=== PATIENT | female | born 1960 | race African-American/Black ===

== ENCOUNTER 2019-10-30 08:30 | Emergency (ER) | payer OTHER ==
--- NOTE | 2019-10-30 08:44 | PDOC ---
Rapid Medical Evaluation Time Seen by Provider: 10/30/19 08:39 Medical Evaluation: 10/30/19 08:39 I have performed a brief in-person evaluation of this patient. The patient presents with a chief complaint of: Here w/ 25 pound unintentional weight loss w/ chest discomfort and cough x > 1 month. Smoker for 25 years. Pertinent physical exam findings:Thin appearing female, tachy to 115 I have ordered the following:labs/cxr The patient will proceed to the ED for further evaluation. Discharge Disposition - Diagnosis Weight loss - Referrals - Patient Instructions - Post Discharge Activity
[2019-10-30 08:45] VITALS: BMI 12.9
--- NOTE | 2019-10-30 09:40 | PDOC ---
History of Present Illness - General Chief Complaint: Loss of Appetite Stated Complaint: Loss of Appetite, weakness Time Seen by Provider: 10/30/19 08:39 - History of Present Illness Initial Comments: Christianne Parra is a 59 Y F with no significant PMH, presets with complaints of weight loss, decreased energy, cough and right sided chest soreness. She reports a loss of about 23lbs in 2-3months. 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 She reports that she has been in self quarantine since july, because her borther is on chemo. She did not have covid/covid like symptoms. Her appetite has always been low, but no recent changes. No fever, chills, night sweats, SOB, chest pain/pleuritic chest pain. she reports >30 years of smoking, 1/3 pack per day. No alcohol, illicit drugs. 10/30/19 09:33 10/30/19 10:15 Past History - Medical History Allergies/Adverse Reactions: Allergies Allergy/AdvReac Type Severity Reaction Status Date / Time No Known Allergies Allergy Verified 10/30/19 08:39 Cancer: No COPD: No Thyroid Disease: No Other medical history: DENIES - Immunization History Immunization Up to Date: No - Psycho-Social/Smoking History Smoking History: Current every day smoker Information on smoking cessation initiated: No - Substance Abuse Hx (Audit-C & DAST Scrn) How often the patient has a drink containing alcohol: Never Score: In Men: 4 or > Positive; In Women: 3 or > Positive: 0 Screen Result (Pos requires Nsg. Audit-10AR): Negative In the last yr the pt used illegal drug/Rx for NonMed reason: No Score: Yes response is considered Positive: 0 Screen Result (Positive result requires Nsg. DAST-10): Negative Review of Systems - Review of Systems Able to Perform ROS?: Yes Is the patient limited French proficient: No Constitutional: Yes: Weakness, Unintentional Wgt. Loss. No: Chills, Diaphoresis, Fever, Loss of Appetite, Night Sweats HEENTM: No: Blurred Vision, Nose Congestion, Throat Pain, Difficulty Swallowing Respiratory: Yes: Cough (with clear sputum), Productive cough. No: Shortness of Breath, Hemoptysis Cardiac (ROS): Yes: Chest Pain (right sided soreness). No: Edema, Lightheadedness, Palpitations, Syncope ABD/GI: No: Constipated, Diarrhea, Difficulty Swallowing, Nausea, Poor Appetite, Poor Fluid Intake, Vomiting : No: Burning, Dysuria, Frequency, Hematuria Musculoskeletal: No: Back Pain, Neck Pain Integumentary: No: Change in Color, Dryness, Rash Neurological: Yes: Weakness. No: Headache, Numbness, Tingling, Tremors Endocrine: Yes: Unexplained Weight Loss. No: Intolerance to Cold, Intolerance to Heat, Increased Hunger, Increased Thirst *Physical Exam - Vital Signs Last Vital Signs Temp Pulse Resp BP Pulse Ox 98.3 F 115 H 20 131/83 100 10/30/19 08:40 10/30/19 08:40 10/30/19 08:40 10/30/19 08:40 10/30/19 08:40 - Physical Exam General Appearance: Yes: Cachetic. No: Apparent Distress HEENT: positive: EOMI, ANTWAN. negative: Nasal Congestion, Rhinorrhea, Thrush Neck: positive: Normal Thyroid, Supple. negative: Tender, Carotid bruit, Thyromegaly Respiratory/Chest: positive: Lungs Clear, Decreased Breath Sounds. negative: Chest Tender, Normal Breath Sounds, Respiratory Distress, Crackles, Rales, Rhonchi Cardiovascular: positive: Regular Rhythm, S1, S2, Tachycardia. negative: JVD, Murmur Vascular Pulses: Carotid (R): 2+, Carotid (L): 2+, Dorsalis-Pedis (R): 2+, Doralis-Pedis (L): 2+ Gastrointestinal/Abdominal: positive: Normal Bowel Sounds, Soft. negative: Tender, Tenderness Musculoskeletal: negative: Vertebral Tenderness Extremity: positive: Normal Inspection. 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 #r/o Lung Ca vs malnutrition, vs hyperthyroidism - weight loss of 23lbs over 2-3 months, BMI 12.9 - Smoking for >30 years - CXR: Hyper inflation w/ fullness of R. hilum - CT chest - CBC, CMP, Mg, Phos, Ua, TSH, cardiac markers - EKG 10/30/19 10:20 Discharge - Discharge Information Problems reviewed: Yes Clinical Impression/Diagnosis: Weight loss Condition: Stable Disposition: HOME - Admission No - Follow up/Referral Referrals: Kiana Joseph [Primary Care Provider] - - Patient Discharge Instructions Additional Instructions: You were seen today (10/30/19) in [facility] ER today for unintentional weight loss of 23lbs, over 2-3months. CXR showed hyperinflation and fullness of R. hilum. CT scan was done to evaluate further. CT revealed a Large central right upper lobe mass(4.9 x 4.3 x 5.2) that appears to be invading the mediastinum. You were informed of the CT scan finding of Mass, suspicious for malignancy. Your CT findings will need further evaluation inpatient. You stated that you did not want to spend tonight in the hospital, wants to sleep in your own bed and will return to ED in the morning. You were advised to return to ER for admission, further work up for the lung mass. - If you decided that you do not want to return to the ER, please f/u with your Primary care physician(Dr. joseph). It is important that you get a proper workup for the lung mass, suspicious for malignancy. - If you do not get a full evaluation, you are at risk for progression of the lung mass, if malignant, metastasis of cancer cells, infections in blood and lungs, worsening weight loss and possible . - Please return to ER immediately if you experience any sudden SOB, chest pain, LOC, weakness, difficulty ambulating, and/or any changes in mental status. - Post Discharge Activity
[2019-10-30 10:06] LABS: BASO % 0.3 % (0-2.0); EOS % 1.3 % (0-4.5); HEMATOCRIT 25.7 % (32.4-45.2); HEMOGLOBIN 8.4 GM/dL (10.7-15.3); LYMPH % 8.9 % (8-40); MCH 26.1 pg (25.7-33.7); MCHC 32.5 g/dl (32.0-36.0); MEAN CELL VOLUME 80.5 fl (80-96); MEAN PLT VOLUME 7.7 fl (7.5-11.1); MONO % 9.9 % (3.8-10.2); NEUT % 79.6 % (42.8-82.8); PLATELET COUNT 592 K/MM3 (134-434); RDW 16.8 % (11.6-15.6); WHITE BLOOD COUNT 10.4 K/mm3 (4.0-10.0)
[2019-10-30 10:11] LABS: EPI CELLS >36 /uL (0-25.1); HYALINE CASTS 22 /uL (0-3.1); PH,URINE 5.5 (5.0-8.0); URINE APPEARANCE CLOUDY; URINE BILIRUBIN NEGATIVE (NEGATIVE); URINE COLOR YELLOW; URINE GLUCOSE (UA) NEGATIVE (NEGATIVE); URINE KETONE NEGATIVE (NEGATIVE); URINE LEUK ESTERASE TRACE (NEGATIVE); URINE NITRITE POSITIVE (NEGATIVE); URINE PROTEIN 2+ (NEGATIVE); URINE RBC 16 /uL (0-23.9); URINE WBC 168 /uL (0-25.8)
[2019-10-30 10:46] LABS: ALK PHOS 146 U/L (45-117); ANION GAP 8 MMOL/L (8-16); BILIRUBIN,TOTAL 0.4 mg/dL (0.2-1); BLOOD UREA NITROGEN 18.6 mg/dL (7-18); CHLORIDE 106 mmol/L (98-107); CO2 28 mmol/L (21-32); CREATININE 0.8 mg/dL (0.55-1.3); GLUCOSE,RANDOM 88 mg/dL (74-106); LIPASE 77 U/L (73-393); MAGNESIUM 2.4 mg/dL (1.8-2.4); PHOSPHOROUS 3.6 mg/dL (2.5-4.9); POTASSIUM 3.3 mmol/L (3.5-5.1); SGOT/AST 16 U/L (15-37); SGPT/ALT 12 U/L (13-61); SODIUM 142 mmol/L (136-145); TOT PROT 7.2 g/dl (6.4-8.2)
[2019-10-30] MEDS ORDERED: CEFTRIAXONE 1 GM in DEXTROSE 5%-WATER - 50 ML IVPB ONE (11:06)
[2019-10-30] MEDS ORDERED: CEFTRIAXONE 1 GM/50 ML BAG ONE (11:19)
--- NOTE | 2019-10-30 11:44 | PDOC ---
Documentation entered by Femi Salas SCRIBE, acting as scribe for Hari Campbell MD. Hari Campbell MD: This documentation has been prepared by the Josue wick Xhesika, SCRIBE, under my direction and personally reviewed by me in its entirety. I confirm that the documentation accurately reflects all work, treatment, procedures, and medical decision making performed by me. Attending Attestation - Resident Resident Name: Kristie Bishop - ED Attending Attestation I have performed the following: I have examined & evaluated the patient, The case was reviewed & discussed with the resident, I agree w/resident's findings & plan, Exceptions are as noted - HPI HPI: 10/30/19 09:48 The patient is a 59y/o F with no PMH who presents to the ED with unintentional weight loss, decreased energy, cough with white sputum and right sided chest soreness. Pt states she has always had a poor appetite, however she has lost about 25lbs in 2-3months. Pt states she is a 30year smoker. Pt denies any recent changes. Denies any fever, chills, night sweats, SOB, collado, chest pain/pleuritic chest pain. Allergies: NKDA PCP: Carrie Saul - Physicial Exam PE: 10/30/19 11:21 GENERAL: The patient is awake, alert, and fully oriented, Nontoxic - in no acute distress. cachectic appearing HEAD: Normocephalic, atraumatic. EYES: extraocular movements intact, sclera anicteric, conjunctiva clear. ENT: Normal voice, Moist mucous membranes. NECK: Normal range of motion, supple LUNGS: Breath sounds equal, clear to auscultation bilaterally. No wheezes, no rhonchi, no rales. HEART: Regular rate and rhythm, normal S1 and S2 without murmur, rub or gallop. ABDOMEN: Soft, nontender, No guarding, no rebound. No CVA tenderness EXTREMITIES: Normal range of motion, no edema. NEUROLOGICAL: No facial assymetry, Normal speech, moving all 4 extremities spontaneously and symmetrically PSYCH: Normal mood, normal affect. SKIN: Warm, Dry, normal turgor, - Medical Decision Making 10/30/19 10:33 59y F chronic smoker, presenst with complaint of malaise/wekaness and weightloss and a sensation of R chest discomfort. cxr noted for fullness in R hilum ?malignancy will botain ct chest labs noted for anemia ua +uti 10/30/19 15:33 pts cta noted for lung mass with suspected mediastinal infiltration recommended admission for expided workup, however pt states she would prefer to go home and will come back for further evaluation. discussed our concern for her mass which may potentially represent a malignancy and she should have that worked up as soon as possible pt states she understands Heart Score/ECG Review - ECG Impressions Comment:: 10/30/19 11:52 Twelve-lead EKG was performed and reviewed by me. There is normal sinus rhythm with a rate of 104 q waves in anterior leads no prior ekg for comparison Discharge - Discharge Information Problems reviewed: Yes Clinical Impression/Diagnosis: Weight loss, Lung mass Condition: Stable Disposition: HOME - Follow up/Referral Referrals: Kiana Joseph [Primary Care Provider] - - Patient Discharge Instructions Additional Instructions: You were seen today (10/30/19) in [facility] ER today for unintentional weight loss of 23lbs, over 2-3months. CXR showed hyperinflation and fullness of R. hilum. CT scan was done to evaluate further. CT revealed a Large central right upper lobe mass(4.9 x 4.3 x 5.2) that appears to be invading the mediastinum. You were informed of the CT scan finding of Mass, suspicious for malignancy. Your CT findings will need further evaluation inpatient. You stated that you did not want to spend tonight in the hospital, wants to sleep in your own bed and will return to ED in the morning. You were advised to return to ER for admission, further work up for the lung mass. - If you decided that you do not want to return to the ER, please f/u with your Primary care physician(Dr. joseph). It is important that you get a proper workup for the lung mass, suspicious for malignancy. - If you do not get a full evaluation, you are at risk for progression of the lung mass, if malignant, metastasis of cancer cells, infections in blood and lungs, worsening weight loss and possible . - Please return to ER immediately if you experience any sudden SOB, chest pain, LOC, weakness, difficulty ambulating, and/or any changes in mental status. - Post Discharge Activity
[2019-10-30] MEDS ORDERED: POTASSIUM CHLORIDE TABS 20 MEQ TABLET.ER (FP) PO ONE ×2 (12:42→13:13)
[2019-10-30 16:16] VITALS: BP 128/82; PULSE 88; TEMP 98.9
--- NOTE | 2019-10-31 09:10 | EKG ---
Test Reason : Blood Pressure : / mmHG Vent. Rate : 104 BPM Atrial Rate : 104 BPM P-R Int : 120 ms QRS Dur : 086 ms QT Int : 338 ms P-R-T Axes : 080 083 054 degrees QTc Int : 444 ms SINUS TACHYCARDIA ANTERIOR INFARCT (CITED ON OR BEFORE 30-OCT-2019) ABNORMAL ECG WHEN COMPARED WITH ECG OF 30-AUG-2004 14:58, VENT. RATE HAS INCREASED BY 38 BPM Confirmed by Zoran Colon ([id number]) on 10/31/2019 9:10:18 AM Referred By: Confirmed By:Zoran Colon
== END 2019-10-30 16:28 | disposition home or self-care (01) ==
LOC: JER 08:30
DX: R63.4 Abnormal weight loss (principal); R91.8 Other nonspecific abnormal finding of lung field
CPT/HCPCS: 36415; 71046-TC-FY; 71250-TC; 80053; 81003; 82550; 83690; 83735; 84100; 84443; 84484; 85025; 93005; 93010; 99285-25; U0003